=== PATIENT | male | born 1960 | race African-American/Black ===

== ENCOUNTER 2023-10-12 19:52 | Emergency (ER) | payer MEDICAID, MEDICARE ==
[~2023-10-12] VITALS: Ht 175.3 cm; Wt 78.0 kg
[2023-10-12 20:08] VITALS: BP 146/87; PULSE 91; RESP 18; TEMP 98.3; O2SAT 100
== END 2023-10-12 21:15 | disposition home or self-care (01) ==
LOC: ER 19:52
DX: K43.9 Ventral hernia without obstruction or gangrene (principal)
CPT/HCPCS: 99283

== ENCOUNTER 2025-03-12 14:45 | Emergency (ER) | payer OTHER, MEDICARE ==
[~2025-03-12] VITALS: Ht 172.7 cm; Wt 73.0 kg
[2025-03-12 15:00] VITALS: O2SAT 99
[2025-03-12 15:40] LABS: BASOPHILS % 0.9 % (0.0-2.0); EOSINOPHILS % 0.9 % (0.0-5.0); HEMATOCRIT. 44.3 % (42.0-52.0); HEMOGLOBIN. 14.9 g/dL (14.0-18.0); LYMPHOCYTES % 16.5 % (20.0-50.0); MEAN CORPUSCULAR HEMOGLOBIN 30.8 pg (28.0-32.0); MEAN CORPUSCULAR HGB CONC 33.7 g/dL (31.0-37.0); MEAN CORPUSCULAR VOLUME 91.3 fL (80.0-94.0); MEAN PLATELET VOLUME 7.7 fl (7.4-10.4); MONOCYTES % 8.4 % (2.0-8.0); NEUTROPHILS % 73.3 % (40.0-76.0); PLATELET 274 x1000/uL (130-400); RED BLOOD CELL COUNT 4.85 mill/uL (4.7-6.1); RED CELL DISTRIBUTION WIDTH 14.1 % (11.6-14.6); WHITE BLOOD COUNT 10.5 x1000/uL (4.5-11.0)
[2025-03-12 15:48] LABS: CARBON DIOXIDE 28 mEq/L (21-32); CHLORIDE 106 mEq/L (98-107); POTASSIUM 4.5 mEq/L (3.5-5.1); SODIUM 142 mEq/L (136-145)
[2025-03-12 15:49] LABS: CALCIUM 9.5 mg/dL (8.7-10.4)
[2025-03-12 15:54] LABS: GLUCOSE 89 mg/dL (70-105); UREA NITROGEN BLOOD 9 mg/dL (9-23)
[2025-03-12 18:24] LABS: GLUCOSE URINE NEGATIVE (NEGATIVE); KETONES URINE NEGATIVE (NEGATIVE)
[2025-03-12 18:57] LABS: CLARITY URINE CLEAR (CLEAR); COLOR URINE YELLOW (YELLOW); LEUKOCYTE ESTERASE URINE NEGATIVE (NEGATIVE); NITRITE URINE NEGATIVE (NEGATIVE); OCCULT BLOOD URINE TRACE (NEGATIVE); PROTEIN URINE TRACE (NEGATIVE); SPECIFIC GRAVITY URINE 1.025 (1.005-1.030)
[2025-03-12 19:28] LABS: BACTERIA URINE TRACE; RBC URINE 0-2 /hpf (0-2); SQUAMOUS EPITHELIAL CELL URINE RARE /lpf (RARE/1+); WBC URINE 0-2 /hpf (0-2)
[2025-03-12] MEDS: KETOROLAC 30MG/ML VIAL IM ONE (19:41)
[2025-03-12] MEDS ORDERED: ACET-2708 MT (19:59)
[2025-03-12] MEDS ORDERED: DICY-18 MT (19:59)
[2025-03-12 20:57] VITALS: BP 135/73; PULSE 57; RESP 16; TEMP 36.8; O2SAT 99
== END 2025-03-12 21:11 | disposition home or self-care (01) ==
LOC: ER 14:45
DX: R10.32 Left lower quadrant pain (principal); R10.13 Epigastric pain; Z79.899 Other long term (current) drug therapy; Z98.890 Other specified postprocedural states
CPT/HCPCS: 99285; 74176; 80048; 81003; 85025; 36415; 96372; J1885